=== PATIENT | male | born 2005 | race African-American/Black ===

== ENCOUNTER 2023-06-24 12:45 | Emergency (ER) | payer SELFPAY ==
[2023-06-24 12:57] VITALS: BP 117/65; PULSE 98; RESP 18; TEMP 97; BMI 19.3
== END 2023-06-24 15:34 | disposition home or self-care (01) ==
LOC: JER 12:45
DX: M79.675 Pain in left toe(s) (principal); S90.122A Contusion of left lesser toe(s) without damage to nail, initial encounter; R22.42 Localized swelling, mass and lump, left lower limb; X58.XXXA Exposure to other specified factors, initial encounter
CPT/HCPCS: 73130-TC-LT-FY; 99283-25